=== PATIENT | female | born 1990 | race Hispanic/Latino ===

== ENCOUNTER 2018-04-20 07:12 | Day surgery (SDC) | payer MEDICAID ==
[~2018-04-20] VITALS: Ht 157.5 cm; Wt 42.7 kg
[~2018-04-20 07:12] MED LIST: RISPERDAL2 MG PO; SINGULAIR PO
[2018-04-20] MEDS ORDERED: KLONOPIN2 MG PO (07:37)
[2018-04-20] MEDS ORDERED: AMBIEN 10MG10 MG PO (07:37)
[2018-04-20] MEDS ORDERED: ABILIFY 10MG TA10 MG PO (07:38)
[2018-04-20] MEDS ORDERED: LAMICTAL 25MG T25 MG PO (07:38)
[2018-04-20] MEDS ORDERED: PROAIR HFA0.09 MG/AC IH (07:39)
[2018-04-20 08:19] VITALS: BP 92/57; PULSE 98; TEMP 98.4
[2018-04-20 10:18] VITALS: BP 95/60; PULSE 84; TEMP 98.3
--- NOTE | 2018-04-20 10:18 | NUR ---
Patient arrives back to [facility] alert. Patient is non-verbal, does not appear to be in any pain or distress. Patient monitor applied, vital stable. Family at bedside.
[2018-04-20 10:30] VITALS: BP 88/58; PULSE 92
--- NOTE | 2018-04-20 10:30 | NUR ---
Patient tolerates apple juice well and without any vomiting.
--- NOTE | 2018-04-20 10:40 | NUR ---
Patient up to restroom at this time and is able to urinate without any difficulties.
[2018-04-20 10:45] VITALS: BP 91/61; PULSE 83
--- NOTE | 2018-04-20 10:50 | NUR ---
Dismissal instructions gone over with patient's sister and mother, both verbalize understanding and all questions answered.
== END 2018-04-20 10:55 | disposition home or self-care (01) ==
LOC: SDCO 07:12
DX: K02.9 Dental caries, unspecified (principal); K05.10 Chronic gingivitis, plaque induced; K04.7 Periapical abscess without sinus; F43.0 Acute stress reaction; G80.9 Cerebral palsy, unspecified; Q02 Microcephaly; R62.50 Unspecified lack of expected normal physiological development in childhood; Z90.49 Acquired absence of other specified parts of digestive tract; Z79.899 Other long term (current) drug therapy
CPT/HCPCS: J1100; J1885; J2405; J2704; J2710; J3010; J7120

== ENCOUNTER → 2020-07-12 | Outpatient (CLI) | payer MEDICAID ==
[~2020-07-12] MED LIST changes: +ABILIFY 10MG TA10 MG PO; +AMBIEN 10MG10 MG PO; +KLONOPIN2 MG PO; +LAMICTAL 25MG T25 MG PO; +PROAIR HFA0.09 MG/AC IH
[2020-07-12 12:00] LABS: BASO % 0.3 % (0.0-2.0); EOS # 0.3 (0.0-0.7); EOS % 2.7 % (0-4.0); GRAN # 6.1 (1.4-6.5); GRAN % 63.6 % (42.2-75.2); HEMATOCRIT 31.6 % (37.0-47.0); HEMOGLOBIN 9.4 g/dl (12.5-16.0); LYMPH # 2.2 (1.2-3.4); MEAN CELL VOLUME 71 fl (80.0-100.0); MEAN CORPUSCULAR HEMOGLOBIN 21 pg (27.0-31.0); MEAN CORPUSCULAR HGB CONC 30 g/dl (33.0-37.0); MEAN PLATELET VOLUME 8.6 fl (7.4-10.4); MONO % 10.1 % (1.7-9.3); PLATELET COUNT 686 K/mm3 (130-400); RED BLOOD COUNT 4.47 M/mm3 (4.10-5.30)
== END ==
LOC: COL.LAB 11:16
PROVIDERS: Neurological Surgery
DX: R79.89 Other specified abnormal findings of blood chemistry (principal); Z79.899 Other long term (current) drug therapy

== ENCOUNTER → 2021-04-13 | Outpatient (CLI) | payer MEDICAID | LOC: COL.RAD 10:54 | DX: J32.9 Chronic sinusitis, unspecified (principal); R56.9 Unspecified convulsions ==

== ENCOUNTER → 2021-04-24 | Outpatient (CLI) | payer MEDICAID ==
[2021-04-24 10:12] LABS: BASO # 0.1 K/mm3 (0.0-0.2); BASO % 0.6 % (0.0-2.0); EOS # 0.8 K/mm3 (0.0-0.7); EOS % 7.7 % (0.0-4.0); GRAN # 5.9 K/mm3 (1.4-6.5); GRAN % 60.2 % (42.2-75.2); HEMATOCRIT 40.2 % (37.0-47.0); HEMOGLOBIN 13.1 g/dl (12.5-16.0); LYMPH # 2.4 K/mm3 (1.2-3.4); LYMPH % 24.6 % (20.0-51.0); MEAN CELL VOLUME 90 fl (80.0-100.0); MEAN CORPUSCULAR HEMOGLOBIN 29 pg (27-31); MEAN CORPUSCULAR HGB CONC 33 g/dl (33.0-37.0); MEAN PLATELET VOLUME 8.7 fl (7.4-10.4); MONO # 0.7 K/mm3 (0.1-0.6); MONO % 6.6 % (1.7-9.3); PLATELET COUNT 422 K/mm3 (130-400); RED BLOOD COUNT 4.48 M/mm3 (4.10-5.30); REDCELL DISTRIBUTION WIDTH-CV 16.5 % (11.5-14.5)
[2021-04-24 10:23] LABS: MUCOUS Present (NOT PRESENT); PH 7 (5-8); URINE APPEARANCE Hazy (CLEAR/HAZY); URINE BACTERIA None Seen /hpf (NONE SEEN); URINE BILIRUBIN Negative (NEGATIVE); URINE BLOOD Negative (NEGATIVE); URINE COLOR Yellow (YELLOW); URINE GLUCOSE Negative (NEGATIVE); URINE KETONE Negative (NEGATIVE); URINE LEUKOCYTE ESTERASE Negative (NEGATIVE); URINE NITRATE Negative (NEGATIVE); URINE PROTEIN(semi-quant) Negative (NEGATIVE); URINE RBC 0-2 /hpf (0-2); URINE UROBILINOGEN Negative (NEGATIVE)
[2021-04-24 10:31] LABS: ALBUMIN 3.3 gm/dL (3.5-5.0); BILIRUBIN,TOTAL 0.5 mg/dL (0.2-1.2); CALCIUM 8.5 mg/dL (8.4-10.2); CREATININE, serum 0.69 mg/dL (0.57-1.11); POTASSIUM 4.2 mmol/L (3.5-4.5); TOTAL PROTEIN 5.6 gm/dL (6.2-8.1)
[2021-04-24 10:37] LABS: COLLECTION METHOD CLEAN CATCH
[2021-04-24 10:50] LABS: THYROID STIMULATING HORMONE 4.233 uIU/mL (0.350-4.940)
== END ==
LOC: COL.LAB 08:49
PROVIDERS: Registered Nurse
DX: D50.9 Iron deficiency anemia, unspecified (principal); D72.829 Elevated white blood cell count, unspecified; Z79.899 Other long term (current) drug therapy; E03.8 Other specified hypothyroidism

== ENCOUNTER 2021-07-04 12:46 | Emergency (ER) | payer MEDICAID ==
[~2021-07-04] VITALS: Ht 162.6 cm; Wt 54.5 kg
[2021-07-04 12:51] VITALS: TEMP 98.5
[2021-07-04 13:29] LABS: BASO % 0.4 % (0.0-2.0); EOS # 0.2 K/mm3 (0.0-0.7); EOS % 2.7 % (0.0-4.0); GRAN # 5.4 K/mm3 (1.4-6.5); GRAN % 66.2 % (42.2-75.2); HEMOGLOBIN 10.6 g/dl (12.5-16.0); LYMPH # 1.7 K/mm3 (1.2-3.4); LYMPH % 20.2 % (20.0-51.0); MEAN CELL VOLUME 87 fl (80.0-100.0); MEAN CORPUSCULAR HEMOGLOBIN 27 pg (27-31); MEAN CORPUSCULAR HGB CONC 32 g/dl (33.0-37.0); MEAN PLATELET VOLUME 8.3 fl (7.4-10.4); MONO # 0.8 K/mm3 (0.1-0.6); MONO % 9.8 % (1.7-9.3); PLATELET COUNT 485 K/mm3 (130-400); RED BLOOD COUNT 3.87 M/mm3 (4.10-5.30); REDCELL DISTRIBUTION WIDTH-CV 15.3 % (11.5-14.5)
[2021-07-04 13:30] LABS: HEMATOCRIT 33.5 % (37.0-47.0)
[2021-07-04 13:48] LABS: ALANINE AMINOTRANSFERASE 10 U/L (0-55); ALBUMIN 2.4 gm/dL (3.5-5.0); ALKALINE PHOSPHATASE 47 U/L (40-150); AST,SGOT 13 U/L (5-34); BILIRUBIN,TOTAL 0.2 mg/dL (0.2-1.2); BLOOD UREA NITROGEN 9 mg/dL (7-19); CALCIUM 7.2 mg/dL (8.4-10.2); CARBON DIOXIDE 19 mmol/L (22-29); CHLORIDE 113 mmol/L (98-107); CREATININE, serum 0.58 mg/dL (0.57-1.11); GLUCOSE 101 mg/dL (70-99); SODIUM 141 mmol/L (136-145); TOTAL PROTEIN 4.7 gm/dL (6.2-8.1)
[2021-07-04 13:49] LABS: ALCOHOL(ethanol),MEDICAL < 10 mg/dL (0-10)
[2021-07-04 14:35] LABS: COLLECTION METHOD CLEAN CATCH
[2021-07-04 14:50] LABS: MUCOUS Present (NOT PRESENT); PH 7 (5-8); SQUAMOUS EPITHELIAL 0-2 /hpf (0-10); URINE APPEARANCE Clear (CLEAR/HAZY); URINE BACTERIA None Seen /hpf (NONE SEEN); URINE BILIRUBIN Negative (NEGATIVE); URINE BLOOD 3+ (NEGATIVE); URINE COLOR Straw (YELLOW); URINE GLUCOSE Negative (NEGATIVE); URINE KETONE Negative (NEGATIVE); URINE LEUKOCYTE ESTERASE Negative (NEGATIVE); URINE NITRATE Negative (NEGATIVE); URINE PROTEIN(semi-quant) Negative (NEGATIVE); URINE UROBILINOGEN Negative (NEGATIVE)
[2021-07-04 14:54] LABS: TRICYCLIC ANTIDEPRESS URINE NEGATIVE
[2021-07-04 15:35] VITALS: BP 90/58; PULSE 74
[2021-07-04 15:49] LABS: ANION GAP 9 mmol/L (7-16)
== END 2021-07-04 15:40 | disposition home or self-care (01) ==
LOC: COL.ER 12:46
PROVIDERS: Emergency Medicine
DX: S09.90XA Unspecified injury of head, initial encounter (principal); S01.21XA Laceration without foreign body of nose, initial encounter; D64.9 Anemia, unspecified; Z28.310 Unvaccinated for COVID-19; W08.XXXA Fall from other furniture, initial encounter
CPT/HCPCS: J7030

== ENCOUNTER → 2021-08-06 | Outpatient (CLI) | payer MEDICAID | LOC: COL.RAD 10:09 | DX: E04.1 Nontoxic single thyroid nodule (principal); R79.89 Other specified abnormal findings of blood chemistry; M54.2 Cervicalgia ==